=== PATIENT | male | born 1965 | race Caucasian/White ===

== ENCOUNTER 2019-03-02 22:51 | Emergency (ER) | payer BC ==
[2019-03-02 23:20] VITALS: BP 155/84; PULSE 74; RESP 18; TEMP 98.6
[2019-03-03] MEDS ORDERED: SODIUM CHLORIDE 0.9% 1,000 ML IV STA (00:40)
[2019-03-03 01:25] LABS: Appearance,Urine Clear (Clear); Basophils % (A) 0 %; Bilirubin,Urine Negative (Negative); Blood,Urine Negative (Negative); Color,Urine Yellow; Eosinophils # (A) 0.1 k/uL (0-0.7); Eosinophils % (A) 1 %; Glucose,Urine (UA) Negative (Negative); HCT 45.4 % (39.0-53.0); HGB 15.3 gm/dL (13.0-17.5); Ketones,Urine Negative (Negative); Leukocyte Esterase,Urine Negative (Negative); Lymphocytes % (A) 9 %; MCH 28.7 pg (25.0-35.0); MCHC 33.8 g/dL (31.0-37.0); Mean Platelet Volume 6.9; Monocytes # (A) 0.6 k/uL (0-1.0); Monocytes % (A) 5 %; Neutrophils # (A) 9.5 k/uL (1.3-7.7); Neutrophils % (A) 83 %; Nitrite,Urine Negative (Negative); PH, Urine 6.5 (5.0-8.0); Platelet Count 240 k/uL (150-450); Protein,Urine Negative (Negative); RBC 5.34 m/uL (4.30-5.90); RDW 13.1 % (11.5-15.5); Specific Gravity,Urine 1.012 (1.001-1.035); Urobilinogen,Urine <2.0 mg/dL (<2.0); WBC 11.5 k/uL (3.8-10.6)
[2019-03-03 01:34] LABS: ALT 24 U/L (21-72); AST 27 U/L (17-59); African American GFR (CKD) >90 (>60 ml/min/1.73 sqM); Albumin 5.1 g/dL (3.5-5.0); Alkaline Phosphatase 74 U/L (38-126); Anion Gap 12 mmol/L; Blood Urea Nitrogen 15 mg/dL (9-20); Calcium 10.5 mg/dL (8.4-10.2); Carbon Dioxide 29 mmol/L (22-30); Chloride 99 mmol/L (98-107); Glucose 121 mg/dL (74-99); Lipase 56 U/L (23-300); Sodium 140 mmol/L (137-145); Total Bilirubin 0.8 mg/dL (0.2-1.3); Total Protein 8.3 g/dL (6.3-8.2)
[2019-03-03] MEDS ORDERED: MORPHINE SULFATE 4 MG/ML SYRINGE IV STA (01:58)
[2019-03-03] MEDS ORDERED: ONDANSETRON 4 MG/2 ML VIAL IVP STA (01:58)
[2019-03-03] MEDS ORDERED: FAMOTIDINE 20 MG/2 ML VIAL IV STA (02:41)
--- NOTE | 2019-03-03 03:13 | XR ---
EXAM: XR Abdomen, 2 Views CLINICAL HISTORY: : pain TECHNIQUE: Frontal view of the abdomen/pelvis with upright view of the abdomen. COMPARISON: No relevant prior studies available. FINDINGS: Intraperitoneal space: No free air. Gastrointestinal tract: Unremarkable. No dilation. Bones/joints: Unremarkable. IMPRESSION: Unremarkable bowel gas pattern
--- NOTE | 2019-03-03 03:18 | ED ---
General Adult HPI - General Chief complaint: Abdominal Pain Stated complaint: Abdominal Pain Time Seen by Provider: 03/03/19 00:38 Source: patient, RN notes reviewed, old records reviewed Mode of arrival: ambulatory Limitations: no limitations - History of Present Illness Initial comments: 54-year-old male patient with no pertinent past history, no prior abdominal surgeries presents to ED with chief complaint in periumbilical and epigastric burning/discomfort pain. Patient reports that this began today. Patient states that he feels that he has some abdominal bloating. Patient denies any nausea vomiting diarrhea. Patient denies any chest pain shortness of breath. Patient denies any other complaints at this time. Systemic: Pt denies fatigue, fever/chills, rash. Pt denies weakness, night sweats, weight loss. Neuro: Pt denies headache, visual disturbances, syncope or pre-syncope. HEENT: Pt denies ocular discharge or irritation, otalgia, rhinorrhea, pharyngitis or notable lymphadenopathy. Cardiopulmonary: Pt denies chest pain, SOB, heart palpitations, dyspnea on exertion. Abdominal/GI: Pt denies n/v/d. : Pt denies dysuria, burning w/ urination, frequency/urgency. Denies new onset urinary or bowel incontinence. MSK: Pt denies myalgia, loss of strength or function in extremities. Neuro: Pt denies new onset weakness, paresthesias. - Related Data Previous Rx's Medication Instructions Recorded Pantoprazole Sodium [Protonix] 20 mg PO Q24HR 10 Days #10 03/03/19 tablet. Allergies Allergy/AdvReac Type Severity Reaction Status Date / Time No Known Allergies Allergy Verified 03/03/19 00:47 Review of Systems ROS Statement: Those systems with pertinent positive or pertinent negative responses have been documented in the HPI. ROS Other: All systems not noted in ROS Statement are negative. Past Medical History Past Medical History: No Reported History History of Any Multi-Drug Resistant Organisms: None Reported Additional Past Surgical History / Comment(s): septoplasty Past Psychological History: No Psychological Hx Reported Smoking Status: Never smoker Past Alcohol Use History: Occasional Past Drug Use History: None Reported General Exam - General Exam Comments Initial Comments: Constitutional: NAD, AOX3, Pt has pleasant affect. HEENT: NC/AT, trachea midline, neck supple, no lymphadenopathy. Posterior pharynx non erythematous, without exudates. External ears appear normal, without discharge. Mucous membranes moist. Eyes PERRLA, EOM intact. There is no scleral icterus. No pallor noted. Cardiopulmonary: RRR, no murmurs, rubs or gallops, no JVD noted. Lungs CTAB in anterior and posterior trujillo. No peripheral edema. Abdominal exam: Abdomen soft and non-distended. Abdomen there is mild generalized tenderness periumbilical region. No focal areas of abdominal tenderness. No tenderness at McBurney's point, Alejandra sign negative. Bowel sounds active in LLQ. No hepatosplenomegaly. No ecchymosis Neuro: CN II-XII grossly intact. No nuchal rigidity. No raccon eyes, no cobb sign, no hemotympanum. No cervical spinal tenderness. MSK: No posterior calf tenderness bilaterally, homans sign negative bilaterally. Posterior tibialis and radial pulse +2 bilaterally. Sensation intact in upper and lower extremities. Full active ROM in upper and lower extremities, 5/5 stregnth. Limitations: no limitations Course Vital Signs 03/02/19 23:16 Temperature 98.6 F Pulse Rate 74 Respiratory 18 Rate Blood Pressure 155/84 O2 Sat by Pulse 98 Oximetry Medical Decision Making - Medical Decision Making 54-year-old male patient with no pertinent past history, no prior abdominal surgeries presents to ED with chief complaint in periumbilical and epigastric burning/discomfort pain. Patient reports that this began today. Patient states that he feels that he has some abdominal bloating. Patient denies any nausea vomiting diarrhea. Patient denies any chest pain shortness of breath. Patient denies any other complaints at this time. Patient vital signs stable, afebrile. Physical examination displayed: Abdomen soft and non-distended. Abdomen there is mild generalized tenderness periumbilical region. No focal areas of abdominal tenderness. No tenderness at McBurney's point, Alejandra sign negative. Laboratory investigations revealed very mild leukocytosis otherwise unremarkable. KUB displayed unremarkable bowel gas pattern. Patient was offered CT abdomen and pelvis, which rather do trial of Protonix. Patient reports they will return to ER if condition worsens in any way. Patient given GI follow-up and he'll follow up next 1-2 days. Patient will return to ER immediately if condition worsens. Case discussed with Dr. Narvaez. - Lab Data Result diagrams: 03/03/19 01:07 03/03/19 01:07 Lab Results 03/03/19 03/03/19 03/03/19 Range/Units 01:07 01:07 01:07 WBC 11.5 H (3.8-10.6) k/uL RBC 5.34 (4.30-5.90) m/uL Hgb 15.3 (13.0-17.5) gm/dL Hct 45.4 (39.0-53.0) % MCV 85.0 (80.0-100.0) fL MCH 28.7 (25.0-35.0) pg MCHC 33.8 (31.0-37.0) g/dL RDW 13.1 (11.5-15.5) % Plt Count 240 (150-450) k/uL Neutrophils % 83 % Lymphocytes % 9 % Monocytes % 5 % Eosinophils % 1 % Basophils % 0 % Neutrophils # 9.5 H (1.3-7.7) k/uL Lymphocytes # 1.0 (1.0-4.8) k/uL Monocytes # 0.6 (0-1.0) k/uL Eosinophils # 0.1 (0-0.7) k/uL Basophils # 0.0 (0-0.2) k/uL Sodium 140 (137-145) mmol/L Potassium 4.0 (3.5-5.1) mmol/L Chloride 99 (98-107) mmol/L Carbon Dioxide 29 (22-30) mmol/L Anion Gap 12 mmol/L BUN 15 (9-20) mg/dL Creatinine 0.99 (0.66-1.25) mg/dL Est GFR (CKD-EPI)AfAm >90 (>60 ml/min/1.73 sqM) Est GFR (CKD-EPI)NonAf 87 (>60 ml/min/1.73 sqM) Glucose 121 H (74-99) mg/dL Plasma Lactic Acid Rashad (0.7-2.0) mmol/L Calcium 10.5 H (8.4-10.2) mg/dL Total Bilirubin 0.8 (0.2-1.3) mg/dL AST 27 (17-59) U/L ALT 24 (21-72) U/L Alkaline Phosphatase 74 (38-126) U/L Total Protein 8.3 H (6.3-8.2) g/dL Albumin 5.1 H (3.5-5.0) g/dL Lipase 56 (23-300) U/L Urine Color Yellow Urine Appearance Clear (Clear) Urine pH 6.5 (5.0-8.0) Ur Specific [place] 1.012 (1.001-1.035) Urine Protein Negative (Negative) Urine Glucose (UA) Negative (Negative) Urine Ketones Negative (Negative) Urine Blood Negative (Negative) Urine Nitrite Negative (Negative) Urine Bilirubin Negative (Negative) Urine Urobilinogen <2.0 (<2.0) mg/dL Ur Leukocyte Esterase Negative (Negative) 03/03/19 Range/Units 01:07 WBC (3.8-10.6) k/uL RBC (4.30-5.90) m/uL Hgb (13.0-17.5) gm/dL Hct (39.0-53.0) % MCV (80.0-100.0) fL MCH (25.0-35.0) pg MCHC (31.0-37.0) g/dL RDW (11.5-15.5) % Plt Count (150-450) k/uL Neutrophils % % Lymphocytes % % Monocytes % % Eosinophils % % Basophils % % Neutrophils # (1.3-7.7) k/uL Lymphocytes # (1.0-4.8) k/uL Monocytes # (0-1.0) k/uL Eosinophils # (0-0.7) k/uL Basophils # (0-0.2) k/uL Sodium (137-145) mmol/L Potassium (3.5-5.1) mmol/L Chloride (98-107) mmol/L Carbon Dioxide (22-30) mmol/L Anion Gap mmol/L BUN (9-20) mg/dL Creatinine (0.66-1.25) mg/dL Est GFR (CKD-EPI)AfAm (>60 ml/min/1.73 sqM) Est GFR (CKD-EPI)NonAf (>60 ml/min/1.73 sqM) Glucose (74-99) mg/dL Plasma Lactic Acid Rashad 1.4 (0.7-2.0) mmol/L Calcium (8.4-10.2) mg/dL Total Bilirubin (0.2-1.3) mg/dL AST (17-59) U/L ALT (21-72) U/L Alkaline Phosphatase (38-126) U/L Total Protein (6.3-8.2) g/dL Albumin (3.5-5.0) g/dL Lipase (23-300) U/L Urine Color Urine Appearance (Clear) Urine pH (5.0-8.0) Ur Specific [place] (1.001-1.035) Urine Protein (Negative) Urine Glucose (UA) (Negative) Urine Ketones (Negative) Urine Blood (Negative) Urine Nitrite (Negative) Urine Bilirubin (Negative) Urine Urobilinogen (<2.0) mg/dL Ur Leukocyte Esterase (Negative) Disposition Clinical Impression: Abdominal pain, Gastritis Disposition: HOME SELF-CARE Condition: Stable Instructions (If sedation given, give patient instructions): Gastritis (ED), Abdominal Pain (ED) Additional Instructions: Patient to adhere to previously discussed treatment plan and will take medication(s) as directed. Patient to follow up with PCP in 1-2 days. Patient to return to ED if symptoms do not improve. Take medication as prescribed. F/u with GI consult in 1-2 days, return to ER if condition worsens. Prescriptions: Pantoprazole Sodium [Protonix] 20 mg PO Q24HR 10 Days #10 tablet.dr Is patient prescribed a controlled substance at d/c from ED?: No Referrals: Jelani Britt MD [Primary Care Provider] - 1-2 days Sahil Aaron MD [STAFF PHYSICIAN] - 1-2 days
[2019-03-03] MEDS ORDERED: PANTOPRAZOLE 40 MG/10 ML VIAL IVP STA (03:25)
== END 2019-03-03 04:27 | disposition home or self-care (01) ==
LOC: EC 22:51
DX: K29.70 Gastritis, unspecified, without bleeding (principal); D72.829 Elevated white blood cell count, unspecified
CPT/HCPCS: 99284; 96374; 96375 ×2; 96361; 36415; 80053; 83605; 83690; 85025; 81003; 74018; J2270; J2405; C9113

== ENCOUNTER 2019-03-03 22:03 | Inpatient (IN) | payer BC ==
[2019-03-03] MEDS ORDERED: MORPHINE SULFATE 4 MG/ML SYRINGE IV STA (22:24)
[2019-03-03] MEDS ORDERED: SODIUM CHLORIDE 0.9% 1,000 ML IV STA (22:24)
[2019-03-03] MEDS ORDERED: ONDANSETRON 4 MG/2 ML VIAL IVP STA (22:24)
[2019-03-03] MEDS ORDERED: IBUPROFEN 600 MG TAB PO STA (22:34)
[2019-03-03 23:12] LABS: Basophils % (A) 0 %; Eosinophils % (A) 0 %; HCT 46.6 % (39.0-53.0); HGB 16.1 gm/dL (13.0-17.5); Lymphocytes # (A) 0.7 k/uL (1.0-4.8); Lymphocytes % (A) 4 %; MCH 29.2 pg (25.0-35.0); MCHC 34.5 g/dL (31.0-37.0); MCV 84.6 fL (80.0-100.0); Mean Platelet Volume 6.9; Monocytes # (A) 0.9 k/uL (0-1.0); Monocytes % (A) 5 %; Neutrophils % (A) 89 %; Platelet Count 233 k/uL (150-450); RBC 5.51 m/uL (4.30-5.90); WBC 18.1 k/uL (3.8-10.6)
[2019-03-03 23:22] LABS: ALT 21 U/L (21-72); AST 30 U/L (17-59); African American GFR (CKD) >90 (>60 ml/min/1.73 sqM); Albumin 4.7 g/dL (3.5-5.0); Alkaline Phosphatase 65 U/L (38-126); Anion Gap 13 mmol/L; Blood Urea Nitrogen 14 mg/dL (9-20); Calcium 9.7 mg/dL (8.4-10.2); Carbon Dioxide 27 mmol/L (22-30); Chloride 94 mmol/L (98-107); Glucose 144 mg/dL (74-99); Potassium 4.2 mmol/L (3.5-5.1); Sodium 134 mmol/L (137-145); Total Bilirubin 1.4 mg/dL (0.2-1.3); Total Protein 7.9 g/dL (6.3-8.2)
[2019-03-03] MEDS ORDERED: cefTRIAXone IN SWFI 1,000 MG/10 ML SYRINGE IVP STA (23:25)
--- NOTE | 2019-03-03 23:28 | ED ---
General Adult HPI - General Source: patient, RN notes reviewed, old records reviewed Mode of arrival: ambulatory Limitations: no limitations <Connor Urrutia - Last Filed: 03/04/19 01:30> <Ki Roger - Last Filed: 03/04/19 22:31> - General Chief complaint: Abdominal Pain Stated complaint: Abd pain Time Seen by Provider: 03/03/19 22:24 - History of Present Illness Initial comments: 53-year-old male patient presents ED for right lower quadrant abdominal pain. Patient was seen at this facility yesterday for periumbilical pain and epigastric burning. Patient reports that after he is discharged today his pain got worse, migrated down to his right lower quadrant and right upper quadrant. Patient also reports episodes of nausea and vomiting. Patient denies any chest pain shortness of breath. Patient denies any other complaints at this time. Systemic: Pt denies fatigue, fever/chills, rash. Pt denies weakness, night sweats, weight loss. Neuro: Pt denies headache, visual disturbances, syncope or pre-syncope. HEENT: Pt denies ocular discharge or irritation, otalgia, rhinorrhea, pharyngitis or notable lymphadenopathy. Cardiopulmonary: Pt denies chest pain, SOB, heart palpitations, dyspnea on exert ion. Abdominal/GI: Pt denies abdominal pain, n/v/d. : Pt denies dysuria, burning w/ urination, frequency/urgency. Denies new onset urinary or bowel incontinence. MSK: Pt denies myalgia, loss of strength or function in extremities. Neuro: Pt denies new onset weakness, paresthesias. (Connor Urrutia) - Related Data Previous Rx's Medication Instructions Recorded Hydrocodone/Acetaminophen [[place] 1 tab PO Q4HR PRN 3 Days #18 tab 03/04/19 5-325] Allergies Allergy/AdvReac Type Severity Reaction Status Date / Time No Known Allergies Allergy Verified 03/04/19 12:41 Review of Systems ROS Other: All systems not noted in ROS Statement are negative. <Connro Urrutia - Last Filed: 03/04/19 01:30> ROS Other: All systems not noted in ROS Statement are negative. <Ki Roger - Last Filed: 03/04/19 22:31> ROS Statement: Those systems with pertinent positive or pertinent negative responses have been documented in the HPI. Past Medical History Past Medical History: No Reported History History of Any Multi-Drug Resistant Organisms: None Reported Additional Past Surgical History / Comment(s): septoplasty Past Psychological History: No Psychological Hx Reported Smoking Status: Never smoker Past Alcohol Use History: Occasional Past Drug Use History: None Reported <Connor Urrutia - Last Filed: 03/04/19 01:30> - Past Family History Father Family Medical History: Cancer Additional Family Medical History / Comment(s): Father at the age of 73 yrs. He had stomach cancer. Mother Family Medical History: Renal Disease Additional Family Medical History / Comment(s): Mother had a cholecystectomy. She also had an aortic aneurysm repair. <Ki Roger - Last Filed: 03/04/19 22:31> General Exam Limitations: no limitations <Connor Urrutia - Last Filed: 03/04/19 01:30> - General Exam Comments Initial Comments: Constitutional: NAD, AOX3, Pt has pleasant affect. HEENT: NC/AT, trachea midline, neck supple, no lymphadenopathy. Posterior pharynx non erythematous, without exudates. External ears appear normal, without discharge. Mucous membranes moist. Eyes PERRLA, EOM intact. There is no scleral icterus. No pallor noted. Cardiopulmonary: RRR, no murmurs, rubs or gallops, no JVD noted. Lungs CTAB in anterior and posterior trujillo. No peripheral edema. Abdominal exam: Abdomen soft and non-distended. Abdomen tender to palpation in right lower quadrant. Abdomen also tender in right upper quadrant, Alejandra sign positive. Left lower quadrant and left upper quadrant nontender to palpation. Bowel sounds active in LLQ. No hepatosplenomegaly. No ecchymosis Neuro: CN II-XII grossly intact. No nuchal rigidity. No raccon eyes, no cobb sign, no hemotympanum. No cervical spinal tenderness. MSK: No posterior calf tenderness bilaterally, homans sign negative bilaterally. Posterior tibialis and radial pulse +2 bilaterally. Sensation intact in upper and lower extremities. Full active ROM in upper and lower extremities, 5/5 stregnth. (Connor Urrutia) Course Vital Signs 03/03/19 03/04/19 22:14 01:41 Temperature 100 F H 100.0 F H Pulse Rate 90 82 Respiratory 18 18 Rate Blood Pressure 146/87 136/80 O2 Sat by Pulse 96 99 Oximetry Medical Decision Making - Lab Data Result diagrams: 03/03/19 22:55 03/03/19 22:55 <Connor Urrutia - Last Filed: 03/04/19 01:30> - Lab Data Result diagrams: 03/03/19 22:55 03/03/19 22:55 <Ki Roger - Last Filed: 03/04/19 22:31> - Medical Decision Making 54-year-old male patient presents ED for right lower quadrant abdominal pain. Patient was seen at this facility yesterday for periumbilical pain and epigastric burning. Patient reports that after he is discharged today his pain got worse, migrated down to his right lower quadrant and right upper quadrant. Patient also reports episodes of nausea and vomiting. Patient denies any chest pain shortness of breath. Patient denies any other complaints at this time. Patient vital signs displayed mild fever, patient administered antipyretic, otherwise stable. Physical exam displayed: Abdomen tender to palpation in right lower quadrant. Abdomen also tender in right upper quadrant, Alejandra sign positive. Left lower quadrant and left upper quadrant nontender to palpation. Laboratory investigations revealed leukocytosis of 18.1. Bilirubin 1.4. Lactic acid 1.6. UA negative. CT abdomen pelvis and ultrasound displayed cholecystitis. Patient initiated on Zosyn. Patient will be admitted to Dr. Knight. Case discussed with Dr. Narvaez. (Connor Urrutia) Case discussed in depth with Dr. Hankins, patient admatted pending cholec ystectomy. I saw this patient in conjunction with the physician fast food assistant restaurant manager. I performed independent history and physical exam. Agree with case management. (Ki Roger) - Lab Data Lab Results 03/03/19 03/03/19 03/03/19 Range/Units 22:55 22:55 22:55 WBC 18.1 H (3.8-10.6) k/uL RBC 5.51 (4.30-5.90) m/uL Hgb 16.1 (13.0-17.5) gm/dL Hct 46.6 (39.0-53.0) % MCV 84.6 (80.0-100.0) fL MCH 29.2 (25.0-35.0) pg MCHC 34.5 (31.0-37.0) g/dL RDW 13.0 (11.5-15.5) % Plt Count 233 (150-450) k/uL Neutrophils % 89 % Lymphocytes % 4 % Monocytes % 5 % Eosinophils % 0 % Basophils % 0 % Neutrophils # 16.0 H (1.3-7.7) k/uL Lymphocytes # 0.7 L (1.0-4.8) k/uL Monocytes # 0.9 (0-1.0) k/uL Eosinophils # 0.0 (0-0.7) k/uL Basophils # 0.0 (0-0.2) k/uL Sodium 134 L (137-145) mmol/L Potassium 4.2 (3.5-5.1) mmol/L Chloride 94 L (98-107) mmol/L Carbon Dioxide 27 (22-30) mmol/L Anion Gap 13 mmol/L BUN 14 (9-20) mg/dL Creatinine 0.85 (0.66-1.25) mg/dL Est GFR (CKD-EPI)AfAm >90 (>60 ml/min/1.73 sqM) Est GFR (CKD-EPI)NonAf >90 (>60 ml/min/1.73 sqM) Glucose 144 H (74-99) mg/dL Plasma Lactic Acid Rashad 1.6 (0.7-2.0) mmol/L Calcium 9.7 (8.4-10.2) mg/dL Total Bilirubin 1.4 H (0.2-1.3) mg/dL AST 30 (17-59) U/L ALT 21 (21-72) U/L Alkaline Phosphatase 65 (38-126) U/L Total Protein 7.9 (6.3-8.2) g/dL Albumin 4.7 (3.5-5.0) g/dL Lipase 23 (23-300) U/L Urine Color Urine Appearance (Clear) Urine pH (5.0-8.0) Ur Specific [place] (1.001-1.035) Urine Protein (Negative) Urine Glucose (UA) (Negative) Urine Ketones (Negative) Urine Blood (Negative) Urine Nitrite (Negative) Urine Bilirubin (Negative) Urine Urobilinogen (<2.0) mg/dL Ur Leukocyte Esterase (Negative) Urine RBC (0-5) /hpf Urine WBC (0-5) /hpf Ur Squamous Epith Cells (0-4) /hpf Urine Mucus (None) /hpf 03/03/19 Range/Units 23:20 WBC (3.8-10.6) k/uL RBC (4.30-5.90) m/uL Hgb (13.0-17.5) gm/dL Hct (39.0-53.0) % MCV (80.0-100.0) fL MCH (25.0-35.0) pg MCHC (31.0-37.0) g/dL RDW (11.5-15.5) % Plt Count (150-450) k/uL Neutrophils % % Lymphocytes % % Monocytes % % Eosinophils % % Basophils % % Neutrophils # (1.3-7.7) k/uL Lymphocytes # (1.0-4.8) k/uL Monocytes # (0-1.0) k/uL Eosinophils # (0-0.7) k/uL Basophils # (0-0.2) k/uL Sodium (137-145) mmol/L Potassium (3.5-5.1) mmol/L Chloride (98-107) mmol/L Carbon Dioxide (22-30) mmol/L Anion Gap mmol/L BUN (9-20) mg/dL Creatinine (0.66-1.25) mg/dL Est GFR (CKD-EPI)AfAm (>60 ml/min/1.73 sqM) Est GFR (CKD-EPI)NonAf (>60 ml/min/1.73 sqM) Glucose (74-99) mg/dL Plasma Lactic Acid Rashad (0.7-2.0) mmol/L Calcium (8.4-10.2) mg/dL Total Bilirubin (0.2-1.3) mg/dL AST (17-59) U/L ALT (21-72) U/L Alkaline Phosphatase (38-126) U/L Total Protein (6.3-8.2) g/dL Albumin (3.5-5.0) g/dL Lipase (23-300) U/L Urine Color Yellow Urine Appearance Clear (Clear) Urine pH 6.5 (5.0-8.0) Ur Specific [place] 1.029 (1.001-1.035) Urine Protein Trace H (Negative) Urine Glucose (UA) Negative (Negative) Urine Ketones Negative (Negative) Urine Blood Trace H (Negative) Urine Nitrite Negative (Negative) Urine Bilirubin Negative (Negative) Urine Urobilinogen <2.0 (<2.0) mg/dL Ur Leukocyte Esterase Negative (Negative) Urine RBC 1 (0-5) /hpf Urine WBC 1 (0-5) /hpf Ur Squamous Epith Cells 1 (0-4) /hpf Urine Mucus Rare H (None) /hpf Disposition Is patient prescribed a controlled substance at d/c from ED?: No <Connor Urrutia - Last Filed: 03/04/19 01:30> <Ki Roger - Last Filed: 03/04/19 22:31> Clinical Impression: Acute cholecystitis Disposition: ADMITTED IP TO THIS HOSP Condition: Serious
[2019-03-04] MEDS ORDERED: MORPHINE SULFATE 4 MG/ML SYRINGE IV STA
[2019-03-04 00:02] LABS: Appearance,Urine Clear (Clear); Bilirubin,Urine Negative (Negative); Blood,Urine Trace (Negative); Color,Urine Yellow; Glucose,Urine (UA) Negative (Negative); Ketones,Urine Negative (Negative); Leukocyte Esterase,Urine Negative (Negative); Mucus,Urine Rare /hpf; Nitrite,Urine Negative (Negative); PH, Urine 6.5 (5.0-8.0); Protein,Urine Trace (Negative); RBC,Urine 1 /hpf (0-5); Specific Gravity,Urine 1.029 (1.001-1.035); Squamous Epithelial Cell,Urine 1 /hpf (0-4); Urobilinogen,Urine <2.0 mg/dL (<2.0); WBC,Urine 1 /hpf (0-5)
--- NOTE | 2019-03-04 00:12 | CT ---
EXAM: CT Abdomen and Pelvis With Intravenous Contrast CLINICAL HISTORY: RLQ abdominal pain TECHNIQUE: Axial computed tomography images of the abdomen and pelvis with intravenous contrast. CTDI is 18.9 mGy and DLP is 885.8 mGy-cm. This CT exam was performed using one or more of the following dose reduction techniques: automated exposure control, adjustment of the mA and/or kV according to patient size, and/or use of iterative reconstruction technique. Coronal and sagittal reconstructions are performed. 431 images received COMPARISON: No relevant prior studies available. FINDINGS: Lung bases: Small amount of bibasilar atelectasis. ABDOMEN: Liver: Trace of perihepatic fluid. Gallbladder and bile ducts: Gallbladder is over distended, surrounded by large amount of mesenteric inflammatory change and edema. Small stones clustered in the dependent portions of the gallbladder. Pancreas: Unremarkable. No mass. No ductal dilation. Spleen: Unremarkable. No splenomegaly. Adrenals: Unremarkable. No mass. Kidneys and ureters: Unremarkable. No solid mass. No hydronephrosis. Stomach and bowel: Unremarkable. No obstruction. No mucosal thickening. PELVIS: Appendix: Poorly visualized on series 202 images 36-42, has normal caliber. Bladder: Unremarkable. No mass. Reproductive: Unremarkable as visualized. ABDOMEN and PELVIS: Intraperitoneal space: Small amount of free pelvic fluid. No free air. Bones/joints: No acute fracture. No dislocation. Soft tissues: Unremarkable. Vasculature: Unremarkable. No abdominal aortic aneurysm. Lymph nodes: Unremarkable. No enlarged lymph nodes. IMPRESSION: Findings suggest cholecystitis. Please correlate with clinical and laboratory findings. <MYCVCSECTION> Critical Value Communications 03/04/19 00:17 Verify Receipt Verified receipt with Andres in ER given to ANALILIA Urrutia on 03/04 00:17 (-04:00)
[2019-03-04] MEDS: PIPERACILLIN-TAZOBACTAM 3.375 GM in SODIUM CHLORIDE 0.9% 100 ML IVPB SCH ×4 (00:48→23:34)
--- NOTE | 2019-03-04 01:09 | US ---
EXAM: US Abdomen Limited, Right Upper Quadrant CLINICAL HISTORY: Right upper quadrant pain x 2 days. TECHNIQUE: Real-time ultrasound of the right upper quadrant with image documentation. COMPARISON: CT abdomen and pelvis from 03/03/19 FINDINGS: Liver: Liver measures about 16 cm longitudinally. No intrahepatic bile duct dilation. Gallbladder: Gallbladder wall measures 3.5 mm in thickness. Tiny stones and large amount of echogenic debris in the gallbladder. Pericholecystic fluid. Positive sonographic Alejandra sign. Common bile duct: not seen due to pain. Pancreas: Unremarkable as visualized. Right kidney: measures bowel 11.7 x 6.2 x 6.3 cm. 13 x 15 x 12 mm upper pole exophytic right renal cyst versus artifact. No stones. No hydronephrosis. IMPRESSION: Findings are consistent with cholecystitis, confirming CT findings from today
[2019-03-04] MEDS ORDERED: ONDANSETRON 4 MG/2 ML VIAL IVP PRN (01:33)
[2019-03-04] MEDS ORDERED: ACETAMINOPHEN TAB 325 MG TAB PO PRN (01:33)
[2019-03-04] MEDS ORDERED: NALOXONE 0.4 MG/ML 1 ML VIAL IV PRN (01:33)
[2019-03-04] MEDS: MORPHINE SULFATE 4 MG/ML SYRINGE IV PRN ×3 (03:20→20:59)
--- NOTE | 2019-03-04 09:00 | P.GSHP ---
<Vilma Coto A - Last Filed: 03/04/19 08:56> History of Present Illness H&P Date: 03/04/19 Chief Complaint: abdominal pain CHIEF COMPLAINT: Abdominal pain HISTORY OF PRESENT ILLNESS: 54-year-old male presenting to the emergency room with a chief complaint of abdominal pain. Patient reports he was evaluated the day before in the emergency room and was discharged home. He states his pain continued to increase and became so severe he came to the hospital. Patient reports having nausea and vomiting. Denies constipation or diarrhea. Denies hematemesis, hematochezia, or melena. Reports feeling feverish at home. PAST MEDICAL HISTORY: See list. PAST SURGICAL HISTORY: See list. SOCIAL HISTORY: No illicit drug use. REVIEW OF SYSTEMS: CONSTITUTIONAL Reports feeling feverish at home. HEENT: Denies blurred vision, vision changes, or eye pain. Denies hemoptysis CARDIOVASCULAR: Denies chest pain or pressure. RESPIRATORY: No shortness of breath. GASTROINTESTINAL: Refer to [facility] for pertinent findings HEMATOLOGIC: Denies bleeding disorders. GENITOURINARY: Denies any blood in urine. SKIN: Denies pruitis. Denies rash. PHYSICAL EXAM: VITAL SIGNS: Reviewed. GENERAL: Well-developed in no acute distress. HEENT: No sclera icterus. Extraocular movements grossly intact. Moist buccal mucosa. Head is atraumatic, normocephalic. ABDOMEN: Soft. Nondistended Tenderness upon palpation. Positive bowel sounds. NEUROLOGIC: Alert and oriented. Cranial nerves II through XII grossly intact. LABORATORY DATA: W BC 18.1 on admission. Neutrophils 16.0. Potassium 4.2. Lactic acid 1.6. Bilirubin 1.4. AST 30. ALT 21. IMAGIN. CT abdomen and pelvis: Gallbladder is overdistended. Surrounded by a large amount of mesenteric inflammatory change and edema. Small stones clustered in dependent portions of the gallbladder. Findings suggestive of cholecystitis 2. Ultrasound gallbladder: Gallbladder measures 3.5 mm in thickness. Kidney stones and large amount of echogenic debris in the gallbladder. pericholecystic fluid. ASSESSMENT: 1. Abdominal pain 2. Acute cholecystitis 3. Sepsis, present on admission patient presented with fever and leukocytosis PLAN: 1. Nothing by mouth. Continue IV fluids 2. Continue IV antibiotics 3. Patient to undergo laparoscopic cholecystectomy today with Dr. Hankins. Nurse practitioner note has been reviewed by physician. Signing provider agrees with the documented findings, assessment, and plan of care. Past Medical History Past Medical History: No Reported History History of Any Multi-Drug Resistant Organisms: None Reported Additional Past Surgical History / Comment(s): septoplasty Past Psychological History: No Psychological Hx Reported Smoking Status: Never smoker Past Alcohol Use History: Occasional Past Drug Use History: None Reported Medications and Allergies Home Medications Medication Instructions Recorded Confirmed Type No Known Home Medications 03/04/19 03/04/19 History Allergies Allergy/AdvReac Type Severity Reaction Status Date / Time No Known Allergies Allergy Verified 03/04/19 12:41 Surgical - Exam Vital Signs Temp Pulse Resp BP Pulse Ox 100 F H 90 18 146/87 96 03/03/19 22:14 03/03/19 22:14 03/03/19 22:14 03/03/19 22:14 03/03/19 22:14 Results - Labs 03/03/19 22:55 03/03/19 22:55 Abnormal Lab Results - Last 24 Hours (Table) 03/03/19 03/03/19 03/03/19 Range/Units 22:55 22:55 23:20 WBC 18.1 H (3.8-10.6) k/uL Neutrophils # 16.0 H (1.3-7.7) k/uL Lymphocytes # 0.7 L (1.0-4.8) k/uL Sodium 134 L (137-145) mmol/L Chloride 94 L (98-107) mmol/L Glucose 144 H (74-99) mg/dL Total Bilirubin 1.4 H (0.2-1.3) mg/dL Urine Protein Trace H (Negative) Urine Blood Trace H (Negative) Urine Mucus Rare H (None) /hpf Diabetes panel 03/03/19 Range/Units 22:55 Sodium 134 L (137-145) mmol/L Potassium 4.2 (3.5-5.1) mmol/L Chloride 94 L (98-107) mmol/L Carbon Dioxide 27 (22-30) mmol/L BUN 14 (9-20) mg/dL Creatinine 0.85 (0.66-1.25) mg/dL Glucose 144 H (74-99) mg/dL Calcium 9.7 (8.4-10.2) mg/dL AST 30 (17-59) U/L ALT 21 (21-72) U/L Alkaline Phosphatase 65 (38-126) U/L Total Protein 7.9 (6.3-8.2) g/dL Albumin 4.7 (3.5-5.0) g/dL Calcium panel 03/03/19 Range/Units 22:55 Calcium 9.7 (8.4-10.2) mg/dL Albumin 4.7 (3.5-5.0) g/dL Pituitary panel 03/03/19 Range/Units 22:55 Sodium 134 L (137-145) mmol/L Potassium 4.2 (3.5-5.1) mmol/L Chloride 94 L (98-107) mmol/L Carbon Dioxide 27 (22-30) mmol/L BUN 14 (9-20) mg/dL Creatinine 0.85 (0.66-1.25) mg/dL Glucose 144 H (74-99) mg/dL Calcium 9.7 (8.4-10.2) mg/dL Adrenal panel 03/03/19 Range/Units 22:55 Sodium 134 L (137-145) mmol/L Potassium 4.2 (3.5-5.1) mmol/L Chloride 94 L (98-107) mmol/L Carbon Dioxide 27 (22-30) mmol/L BUN 14 (9-20) mg/dL Creatinine 0.85 (0.66-1.25) mg/dL Glucose 144 H (74-99) mg/dL Calcium 9.7 (8.4-10.2) mg/dL Total Bilirubin 1.4 H (0.2-1.3) mg/dL AST 30 (17-59) U/L ALT 21 (21-72) U/L Alkaline Phosphatase 65 (38-126) U/L Total Protein 7.9 (6.3-8.2) g/dL Albumin 4.7 (3.5-5.0) g/dL <Caden Hankins - Last Filed: 03/04/19 13:29> Surgical - Exam Vital Signs Temp Pulse Resp BP Pulse Ox 100 F H 90 18 146/87 96 03/03/19 22:14 03/03/19 22:14 03/03/19 22:14 03/03/19 22:14 03/03/19 22:14 Results - Labs 03/03/19 22:55 03/03/19 22:55 Abnormal Lab Results - Last 24 Hours (Table) 03/03/19 03/03/19 03/03/19 Range/Units 22:55 22:55 23:20 WBC 18.1 H (3.8-10.6) k/uL Neutrophils # 16.0 H (1.3-7.7) k/uL Lymphocytes # 0.7 L (1.0-4.8) k/uL Sodium 134 L (137-145) mmol/L Chloride 94 L (98-107) mmol/L Glucose 144 H (74-99) mg/dL Total Bilirubin 1.4 H (0.2-1.3) mg/dL Urine Protein Trace H (Negative) Urine Blood Trace H (Negative) Urine Mucus Rare H (None) /hpf Diabetes panel 03/03/19 Range/Units 22:55 Sodium 134 L (137-145) mmol/L Potassium 4.2 (3.5-5.1) mmol/L Chloride 94 L (98-107) mmol/L Carbon Dioxide 27 (22-30) mmol/L BUN 14 (9-20) mg/dL Creatinine 0.85 (0.66-1.25) mg/dL Glucose 144 H (74-99) mg/dL Calcium 9.7 (8.4-10.2) mg/dL AST 30 (17-59) U/L ALT 21 (21-72) U/L Alkaline Phosphatase 65 (38-126) U/L Total Protein 7.9 (6.3-8.2) g/dL Albumin 4.7 (3.5-5.0) g/dL Calcium panel 03/03/19 Range/Units 22:55 Calcium 9.7 (8.4-10.2) mg/dL Albumin 4.7 (3.5-5.0) g/dL Pituitary panel 03/03/19 Range/Units 22:55 Sodium 134 L (137-145) mmol/L Potassium 4.2 (3.5-5.1) mmol/L Chloride 94 L (98-107) mmol/L Carbon Dioxide 27 (22-30) mmol/L BUN 14 (9-20) mg/dL Creatinine 0.85 (0.66-1.25) mg/dL Glucose 144 H (74-99) mg/dL Calcium 9.7 (8.4-10.2) mg/dL Adrenal panel 03/03/19 Range/Units 22:55 Sodium 134 L (137-145) mmol/L Potassium 4.2 (3.5-5.1) mmol/L Chloride 94 L (98-107) mmol/L Carbon Dioxide 27 (22-30) mmol/L BUN 14 (9-20) mg/dL Creatinine 0.85 (0.66-1.25) mg/dL Glucose 144 H (74-99) mg/dL Calcium 9.7 (8.4-10.2) mg/dL Total Bilirubin 1.4 H (0.2-1.3) mg/dL AST 30 (17-59) U/L ALT 21 (21-72) U/L Alkaline Phosphatase 65 (38-126) U/L Total Protein 7.9 (6.3-8.2) g/dL Albumin 4.7 (3.5-5.0) g/dL Assessment and Plan Plan: We will perform laparoscopic cholecystectomy today.
[2019-03-04] MEDS: SODIUM CHLORIDE 0.9% 1,000 ML IV SCH ×3 (09:40→23:40)
[2019-03-04] MEDS ORDERED: MIDAZOLAM (PF) 2 MG/2 ML VIAL IVP ONE (13:00)
[2019-03-04] MEDS ORDERED: HEPARIN SODIUM,PORCINE 5,000 UNIT/ML 1 ML VIAL SQ ONE (13:10)
[2019-03-04] MEDS ORDERED: ROCURONIUM BROMIDE 10 MG/ML 10 ML VIAL IV ONE (13:32)
[2019-03-04] MEDS ORDERED: GLYCOPYRROLATE 0.2 MG/ML 2 ML VIAL ONE (13:32)
[2019-03-04] MEDS ORDERED: PROPOFOL 10 MG/ML 20 ML VIAL IV ONE (13:32)
[2019-03-04] MEDS ORDERED: LIDOCAINE 1% INJ 10MG/ML (20 ML MDV) ONE (13:32)
[2019-03-04] MEDS ORDERED: NEOSTIGMINE 1 MG/ML 10 ML VIAL ONE (13:32)
[2019-03-04] MEDS ORDERED: HYDROmorphone (PF) 1 MG/ML ONE (13:32)
[2019-03-04] MEDS ORDERED: SUCCINYLCHOLINE CHLORIDE 100 MG/5 ML SYR IV ONE (13:32)
[2019-03-04] MEDS ORDERED: ceFAZolin 1,000 MG VIAL ONE (13:32)
[2019-03-04] MEDS ORDERED: WATER FOR INJECTION, STERILE 10 ML VIAL IV ONE (13:32)
[2019-03-04] MEDS ORDERED: ePHEDrine SULFATE/0.9% NACL/PF 50 MG/5 ML SYRINGE IV ONE (13:32)
[2019-03-04] MEDS ORDERED: fentaNYL (PF) 50 MCG/ML 2 ML AMP ONE (13:32)
[2019-03-04] MEDS ORDERED: IV FLUID CONTINUATION 1,000 ML IV ONE (13:33)
[2019-03-04] MEDS ORDERED: BUPIVACAINE (PF) 0.5% 30 ML VIAL SQ ONE (14:06)
--- NOTE | 2019-03-04 14:38 | P.OP ---
Date of Procedure: 03/04/19 Preoperative Diagnosis: Cholecystitis Postoperative Diagnosis: Acute gangrenous cholecystitis Procedure(s) Performed: Laparoscopic cholecystectomy Anesthesia: DENNIS Surgeon: Caden Hankins Estimated Blood Loss (ml): 30 Pathology: other (Gallbladder) Condition: stable Disposition: PACU Description of Procedure: The patient was placed on the operating table. The patient received a general endotracheal tube anesthesia. The patients abdomen was prepped and draped in the usual sterile fashion. Through an infraumbilical stab incision, the fascia of the anterior abdominal wall was grasped with a pair of Kochers and then the Veress needle was placed in the peritoneal cavity. Position of the Veress needle was confirmed with positive drop test. The abdomen was then insufflated. After adequate insufflation, the 10 mm trocar was placed in the peritoneal cavity. Following this the laparoscope was placed in the peritoneal cavity. The patient was placed in the head-up, right side up position and then a 5 mm trocar was placed in the right lateral and right subcostal position under direct visualization. A 8 mm trocar was placed in the epigastric position. The gallbladder was grasped in the fundus and infundibulum. The gallbladder was acutely inflamed with evidence of necrosis. The gallbladder was quite tense. Opening was made in the gallbladder and then the gallbladder was evacuated with suction. Traction on the gallbladder was placed in the lateral and the cephalad positions. The triangle of Calot was visualized.. The cystic duct was bluntly dissected until the union of the cystic duct and common bile duct was seen. A critical view of safety was achieved. The cystic duct was then ligated using a 2-0 Ethibond and the tied knot device. The cystic duct was then divided and sealed with the Harmonic scissors. . The cystic artery divided and sealed with the Harmonic scissors. The gallbladder was then removed from the liver bed using Harmonic scissors. The gallbladder was then extracted through the epigastric port site. A ROXANNE drain is placed in the gallbladder fossa and brought through the 5 mm trocar site. Operative field was checked for any bleeding spots and Harmonic scissors was used to coagulate the liver bed. The abdomen was irrigated. The trocars were removed. The skin was closed using interrupted 3-0 Vicryl suture. Dermabond dressing were applied. The patient tolerated the procedure well.
[2019-03-04] MEDS ORDERED: HYDROmorphone 1 MG/ML 1 ML SYRINGE IM PRN (14:39)
[2019-03-04] MEDS: HEPARIN SODIUM,PORCINE 5,000 UNIT/ML 1 ML VIAL SQ SCH (23:34)
[2019-03-05] MEDS: SODIUM CHLORIDE 0.9% 1,000 ML IV SCH ×3 (06:09→23:33)
[2019-03-05] MEDS: MORPHINE SULFATE 4 MG/ML SYRINGE IV PRN ×2 (06:11→12:38)
[2019-03-05 08:25] LABS: Basophils % (A) 0 %; Eosinophils % (A) 0 %; HCT 38.1 % (39.0-53.0); Lymphocytes # (A) 1.2 k/uL (1.0-4.8); Lymphocytes % (A) 11 %; MCH 29.6 pg (25.0-35.0); MCHC 34.5 g/dL (31.0-37.0); MCV 85.7 fL (80.0-100.0); Mean Platelet Volume 7.3; Monocytes # (A) 0.6 k/uL (0-1.0); Monocytes % (A) 5 %; Neutrophils # (A) 9.1 k/uL (1.3-7.7); Neutrophils % (A) 82 %; Platelet Count 209 k/uL (150-450); RBC 4.44 m/uL (4.30-5.90); RDW 13.9 % (11.5-15.5); WBC 11.1 k/uL (3.8-10.6)
[2019-03-05 08:36] LABS: Albumin 2.8 g/dL (3.5-5.0); Potassium 4.3 mmol/L (3.5-5.1); Total Bilirubin 0.7 mg/dL (0.2-1.3); Total Protein 5.3 g/dL (6.3-8.2)
[2019-03-05 08:45] LABS: HGB 13.1 gm/dL (13.0-17.5)
[2019-03-05] MEDS: PANTOPRAZOLE 40 MG TABLET PO SCH (11:42)
[2019-03-05] MEDS: HEPARIN SODIUM,PORCINE 5,000 UNIT/ML 1 ML VIAL SQ SCH ×3 (11:43→23:32)
[2019-03-05] MEDS: METOCLOPRAMIDE 5 MG/ML 2 ML VIAL IVP SCH ×3 (11:44→23:33)
[2019-03-05] MEDS: PIPERACILLIN-TAZOBACTAM 3.375 GM in SODIUM CHLORIDE 0.9% 100 ML IVPB SCH ×3 (11:45→23:32)
--- NOTE | 2019-03-05 12:15 | P.PN ---
Subjective Progress Note Date: 03/05/19 CHIEF COMPLAINT: Abdominal pain HISTORY OF PRESENT ILLNESS: Patient is status post laparoscopic cholecystectomy secondary to acute gangrenous cholecystitis. Postop day #1. Patient examined this morning the bedside. patient reports his pain is tolerable at this time. He does report abdominal bloating and distention. Denies nausea or vomiting. Denies passing flatus. Denies bowel movement. Patient is voiding per urinal. However he states he feels he is not emptying his bladder completely. He denies history of enlarged prostate. PHYSICAL EXAM: VITAL SIGNS: Reviewed. GENERAL: Well-developed in no acute distress. HEENT: No sclera icterus. Extraocular movements grossly intact. Moist buccal mucosa. Head is atraumatic, normocephalic. ABDOMEN: slightly firm. Distended. mild tenderness. Hypoactive bowel sounds. surgical incision sites clean dry and intact without drainage or signs of infection. ROXANNE drain with serosanguineous drainage. NEUROLOGIC: Alert and oriented. Cranial nerves II through XII grossly intact. ASSESSMENT: 1. Abdominal pain 2. Acute gangrenous cholecystitis 3. Sepsis, present on admission patient presented with fever and leukocytosis 4. Postoperative ileus, an unexpected but potential outcome of surgery PLAN: 1. Continue clear liquid diet 2. Begin Reglan 10mg IV q 6 hours 3. Await patient to begin passing flatus and abdominal distention to improved before advancing diet 4. Continue antibiotics 5. Monitor white count 6. Incentive spirometry. 7. Activity as tolerated. Patient encouraged to be out of bed and ambulatory today. 8. Nursing to check post void residual to rule out urinary retention Nurse practitioner note has been reviewed by physician. Signing provider agrees with the documented findings, assessment, and plan of care. Objective - Vital Signs Vital signs: Vital Signs Temp 98.8 F 03/05/19 07:36 Pulse 89 03/05/19 07:36 Resp 16 03/05/19 07:36 BP 105/64 03/05/19 07:36 Pulse Ox 93 L 03/05/19 07:36 Intake & Output 03/04/19 03/05/19 03/05/19 18:59 06:59 18:59 Intake Total 1450 240 Output Total 115 1060 1025 Balance 1335 -1060 -785 Intake: IV 1050 Oral 400 240 Output: Drainage 40 60 Right Abdomen 40 60 Urine 1000 1025 Estimated Blood Loss 75 Other: Voiding Method Toilet Toilet Urinal Urinal # Voids 4 - Labs CBC & Chem 7: 03/05/19 07:24 03/05/19 07:24 Labs: Abnormal Lab Results - Last 24 Hours (Table) 03/05/19 03/05/19 Range/Units 07:24 07:24 WBC 11.1 H (3.8-10.6) k/uL Hct 38.1 L (39.0-53.0) % Neutrophils # 9.1 H (1.3-7.7) k/uL Sodium 136 L (137-145) mmol/L Glucose 100 H (74-99) mg/dL Calcium 8.0 L (8.4-10.2) mg/dL Total Protein 5.3 L (6.3-8.2) g/dL Albumin 2.8 L (3.5-5.0) g/dL Microbiology - Last 24 Hours (Table) 03/03/19 23:58 Blood Culture - Preliminary Blood No Growth after 24 hours
[2019-03-05 13:48] VITALS: BMI 25.5
[2019-03-05] MEDS: HYDROcodone/APAP 5-325MG 1 EACH TAB PO PRN ×2 (18:26→23:32)
[2019-03-05 23:07] VITALS: RESP 17; TEMP 98.3
[2019-03-06] MEDS: SODIUM CHLORIDE 0.9% 1,000 ML IV SCH ×2 (03:38→11:48)
[2019-03-06] MEDS: METOCLOPRAMIDE 5 MG/ML 2 ML VIAL IVP SCH ×2 (05:19→11:46)
[2019-03-06] MEDS: HYDROcodone/APAP 5-325MG 1 EACH TAB PO PRN (05:19)
[2019-03-06 08:03] VITALS: BP 128/80; PULSE 77
[2019-03-06] MEDS: HEPARIN SODIUM,PORCINE 5,000 UNIT/ML 1 ML VIAL SQ SCH (08:05)
[2019-03-06] MEDS: PANTOPRAZOLE 40 MG TABLET PO SCH (08:05)
[2019-03-06] MEDS: PIPERACILLIN-TAZOBACTAM 3.375 GM in SODIUM CHLORIDE 0.9% 100 ML IVPB SCH (08:05)
[2019-03-06 10:25] LABS: Basophils % (A) 0 %; Eosinophils # (A) 0.1 k/uL (0-0.7); Eosinophils % (A) 1 %; HCT 36.7 % (39.0-53.0); HGB 11.9 gm/dL (13.0-17.5); Lymphocytes # (A) 1.4 k/uL (1.0-4.8); Lymphocytes % (A) 20 %; MCH 28.4 pg (25.0-35.0); MCHC 32.5 g/dL (31.0-37.0); MCV 87.4 fL (80.0-100.0); Mean Platelet Volume 6.7; Monocytes # (A) 0.4 k/uL (0-1.0); Monocytes % (A) 5 %; Neutrophils # (A) 4.6 k/uL (1.3-7.7); Neutrophils % (A) 70 %; Platelet Count 264 k/uL (150-450); RDW 13.1 % (11.5-15.5); WBC 6.6 k/uL (3.8-10.6)
[2019-03-06 10:36] LABS: African American GFR (CKD) >90 (>60 ml/min/1.73 sqM); Anion Gap 7 mmol/L; Blood Urea Nitrogen 13 mg/dL (9-20); Calcium 8.1 mg/dL (8.4-10.2); Carbon Dioxide 28 mmol/L (22-30); Chloride 103 mmol/L (98-107); Glucose 130 mg/dL (74-99); Potassium 3.8 mmol/L (3.5-5.1); Sodium 138 mmol/L (137-145)
--- NOTE | 2019-03-06 14:33 | P.DS ---
Providers Date of admission: 03/04/19 02:34 Expected date of discharge: 03/06/19 Attending physician: Caden Hankins Primary care physician: Abilio Britt [facility] Course: 54-year-old male who underwent laparoscopic cholecystectomy secondary to acute gangrenous cholecystitis. Patient is doing well postoperatively. Patient did develop mild ileus postoperatively which has resolved. He is passing flatus and tolerating diet. Pain is controlled on oral medications. Vital signs stable. He has been afebrile. White count 6.6. Patient is deemed stable for discharge home today per Dr. Hankins. Please see EMR for further hospital course details. ROXANNE drain discontinued prior to discharge. Discharge Diagnosis: 1. Abdominal pain 2. Acute gangrenous cholecystitis 3. Sepsis, present on admission patient presented with fever and leukocytosis 4. Postoperative ileus, an unexpected but potential outcome of surgery, resolved Nurse practitioner note has been reviewed by physician. Signing provider agrees with the documented findings, assessment, and plan of care. Patient Condition at Discharge: Stable Plan - Discharge Summary Discharge Rx Participant: Yes New Discharge Prescriptions: New Hydrocodone/Acetaminophen [[place] 5-325] 1 tab PO Q4HR PRN 3 Days #18 tab PRN Reason: Pain Docusate [Colace] 100 mg PO BID #30 capsule Levofloxacin [Levaquin] 500 mg PO DAILY #7 tab Discharge Medication List Hydrocodone/Acetaminophen [[place] 5-325] 1 tab PO Q4HR PRN 3 Days #18 tab 03/04/19 [Rx] Docusate [Colace] 100 mg PO BID #30 capsule 03/06/19 [Rx] Levofloxacin [Levaquin] 500 mg PO DAILY #7 tab 03/06/19 [Rx] Follow up Appointment(s)/Referral(s): Jelani Britt MD [Primary Care Provider] - 1-2 days (Office will call patient with follow-up appointment.) Caden Hankins MD [STAFF PHYSICIAN] - 03/12/19 2:35 pm Patient Instructions/Handouts: *Surgery [facility] - Laparoscopic Cholecystectomy Discharge Instructions Activity/Diet/Wound Care/Special Instructions: No driving while taking [place] No lifting over 10 pounds You may shower. No soaking or tub baths Very light activity until you are reevaluated at your follow up appointment with your surgeon
--- NOTE | 2019-05-21 10:26 | CDI ---
Documentation Clarification Form Date: From: Perri Mari Phone: [phone] Admit Date: 03/04/2019 2:34:00 AM Patient Name: Ki Forde Visit Number: [id number] Discharge Date: 03/06/2019 2:30:00 PM ATTENTION: The Clinical Documentation Specialists (CDI) and [facility] Coding Staff appreciate your assistance in clarifying documentation. Please respond to the clarification below the line at the bottom and electronically sign. The CDI & [facility] Coding staff will review the response and follow-up if needed. Please note: Queries are made part of the Legal Health Record. If you have any questions, please contact the author of this message via ITS. Dr. Caden Hankins "Postoperative ileus, an unexpected but potential outcome of surgery" is documented in the PN on 03/05 adnt DC summary. Patients Admitting Diagnosis: cholecystitis and sepsis Post-Operative Diagnosis: acute gangrenous cholecystitis Procedure performed: laparoscopic cholecystectomy History/Risk Factors: pt had abd pain on admission Clinical Indicators: abd distension and bloating on 03/05 Treatment: Reglan IV, clear liquid diet started 03/05, per the record the pt ate 100% of dinner on 03/05 In order to accurately reflect this patients severity of illness, please clarify if the post-operative diagnosis is: Not clinically significant An expected post-procedural or post-surgical condition An unexpected post-procedural or post-surgical condition related to surgical care (a complication of care) An unexpected post-procedural or post-surgical condition, related to the patients underlying medical comorbidities Other, please specify ____ Unable to determine (Last Revision: November 2018) Expected post surgical condition with acute gangrenous cholecystitis MTDD
== END 2019-03-06 14:30 | disposition home or self-care (01) | DRG 854 ==
LOC: EC 22:03 → 4SSUR 03-04 02:34
PROVIDERS: ADMIT Surgery; ATTEND Surgery
PROC: 0FT44ZZ Resection of Gallbladder, Percutaneous Endoscopic Approach (ICD-10-PCS; principal; 2019-03-04 08:45)
DX: A41.9 Sepsis, unspecified organism (principal); K80.00 Calculus of gallbladder with acute cholecystitis without obstruction; K56.7 Ileus, unspecified; Z98.890 Other specified postprocedural states; Z82.49 Family history of ischemic heart disease and other diseases of the circulatory system; Z84.1 Family history of disorders of kidney and ureter
CPT/HCPCS: 36415; 74018; 74177; 76705; 80048; 80053; 81001; 81003; 83605; 83690; 85025; 87040; 88304; 96361; 96374; 96375; 96376; 99284; 99285